=== PATIENT | female | born 1945 | race Caucasian/White ===

== ENCOUNTER → 2017-02-25 | Outpatient (CLI) | payer MEDICARE, OTHER ==
[~2017-02-25] MED LIST: ALEVE 220MG220 MG PO; FETZIMA20 PO; FETZIMA40 PO; FEXMID7.5 MG PO; IBU-4400 MG; PREDNISONE10 MG PO; PREMPRO 0.45 MG1 TAB PO; PREMPRO 0.625/21 TAB PO; TYLENOL EXTRA500 M1 PO
== END ==
LOC: MC.RAD 13:39
DX: Z12.31 Encounter for screening mammogram for malignant neoplasm of breast (principal)

== ENCOUNTER 2023-10-26 14:33 | Emergency (ER) | payer MEDICARE, OTHER ==
[~2023-10-26] VITALS: Ht 170.2 cm; Wt 70.5 kg
[2023-10-26 14:40] VITALS: BP 144/66; PULSE 95; TEMP 97.8
== END 2023-10-26 17:15 | disposition home or self-care (01) ==
LOC: COL.ER 14:33
DX: M51.36 Other intervertebral disc degeneration, lumbar region (principal); M54.16 Radiculopathy, lumbar region; M48.061 Spinal stenosis, lumbar region without neurogenic claudication; Z98.890 Other specified postprocedural states

== ENCOUNTER 2023-11-22 09:02 | Emergency (ER) | payer MEDICARE, OTHER ==
[~2023-11-22] VITALS: Ht 170.2 cm; Wt 71.8 kg
[~2023-11-22 09:02] MED LIST changes: +CELEBREX50 MG PO; +DUPIXENT P200 MG/1.1 SQ; +FOSAMAX5 MG PO; +NEURONTIN100 MG/CAP PO; +OSCAL 500 TAB500 MG PO; +VITAMIN D3400 I1 PO; +ZANAFLEX CAPSULE2 MG PO; +ZOLOFT 50MG50 MG PO
[2023-11-22 09:04] VITALS: TEMP 98.1
[2023-11-22] MEDS ORDERED: Ketorolac 15 MG/ML VIAL IV ONE (09:30)
[2023-11-22] MEDS ORDERED: PREDNISONE20 MG PO (09:51)
[2023-11-22 10:06] VITALS: BP 143/63; PULSE 76
[2023-11-22] MEDS ORDERED: Home HYDROcodone/Acetaminophen 5/325 MG #4 TABS/PACK PO ONE (10:45)
[2023-11-22] MEDS ORDERED: NARCAN4 MG NS (11:17)
[2023-11-23] MEDS ORDERED: FOSAMAX 35MG35 MG PO (13:14)
[2023-11-23] MEDS ORDERED: CALCIUM 600 PLU1 TAB PO (13:15)
[2023-11-23] MEDS ORDERED: CELEBREX 1100 MG/CAP PO (13:16)
[2023-11-23] MEDS ORDERED: DUPIXENT P300 MG/2 M SQ (13:17)
[2023-11-23] MEDS ORDERED: NEURONTIN300 MG/CAP PO (13:17)
[2023-11-23] MEDS ORDERED: ZANAFLEX CAPSULE4 MG PO (13:18)
[2023-11-23] MEDS ORDERED: D3-5050000 IU PO (13:19)
[2023-11-23] MEDS ORDERED: MASON NATURAL2000 IU PO (13:20)
[2023-11-23] MEDS ORDERED: PREDNISONE20 MG PO (13:20)
[2023-11-23] MEDS ORDERED: NORCO 325 MG-51 TAB PO (13:21)
== END 2023-11-22 11:20 | disposition home or self-care (01) ==
LOC: COL.ER 09:02
DX: G89.29 Other chronic pain (principal); M54.50 Low back pain, unspecified
CPT/HCPCS: J1885; J2360

== ENCOUNTER → 2023-12-18 | Outpatient (CLI) | payer MEDICARE, OTHER ==
[~2023-12-18] VITALS: Ht 170.2 cm; Wt 71.9 kg
[~2023-12-18] MED LIST changes: +CALCIUM 600 PLU1 TAB PO; +CELEBREX 1100 MG/CAP PO; +D3-5050000 IU PO; +DUPIXENT P300 MG/2 M SQ; +FOSAMAX 35MG35 MG PO; +MASON NATURAL2000 IU PO; +NARCAN4 MG NS; +NEURONTIN300 MG/CAP PO; +NORCO 325 MG-51 TAB PO; +PREDNISONE20 MG PO; +Triamcinolone 40 MG/ML 1 ML VIAL IJ SCH; +ZANAFLEX CAPSULE4 MG PO
[2023-12-18 12:39] VITALS: BP 132/78; PULSE 83; TEMP 98.2
[2023-12-18 13:35] VITALS: BP 156/76; PULSE 83
--- NOTE | 2023-12-18 14:00 | NUR ---
PATIENT COMPLETED HER RECOVERY PERIOD. PATIENT IS ABLE TO WALK WITHOUT ANY ISSUES. BANDAGES REMAIN CLEAN, DRY, AND INTACT. PATIENT DENIES HAVING ANY NEW PAIN, NUMBNESS, OR TINGLING. PATIENT HAS HER WRITTEN D/C INSTRUCTIONS AND IS ABLE TO TEACH BACK. ESCORTED PATIENT VIA WHEELCHAIR TO HER RIDE AT THE PATIENT ENTRANCE. PATIENT ABLE TO GET INTO THE FRONT PASSENGER SEAT WITHOUT ANY ISSUES OR ASSISTANCE. ALL NEEDS MET.
== END ==
LOC: COL.RAD 12:20
DX: M47.26 Other spondylosis with radiculopathy, lumbar region (principal); M51.16 Intervertebral disc disorders with radiculopathy, lumbar region
CPT/HCPCS: J0665; J3301

== ENCOUNTER 2023-12-22 13:44 | Emergency (ER) | payer MEDICARE ==
[~2023-12-22] VITALS: Ht 170.2 cm; Wt 71.4 kg
[~2023-12-22 13:44] MED LIST changes: -Triamcinolone 40 MG/ML 1 ML VIAL IJ SCH
[2023-12-22 13:47] VITALS: TEMP 98.8
[2023-12-22 14:53] LABS: BASO # 0.1 K/mm3 (0.0-0.2); BASO % 0.6 % (0.0-2.0); EOS # 0.2 K/mm3 (0.0-0.7); EOS % 1.7 % (0.0-4.0); GRAN # 7.5 K/mm3 (1.4-6.5); HEMATOCRIT 43.4 % (37.0-47.0); HEMOGLOBIN 13.6 g/dl (12.5-16.0); LYMPH # 2.1 K/mm3 (1.2-3.4); LYMPH % 19.4 % (20.0-51.0); MEAN CELL VOLUME 90 fl (80.0-100.0); MEAN CORPUSCULAR HEMOGLOBIN 28 pg (27-31); MEAN CORPUSCULAR HGB CONC 31 g/dl (33.0-37.0); MEAN PLATELET VOLUME 10.5 fl (7.4-10.4); MONO % 8.8 % (1.7-9.3); PLATELET COUNT 219 K/mm3 (130-400); RED BLOOD COUNT 4.81 M/mm3 (4.10-5.30); REDCELL DISTRIBUTION WIDTH-CV 13.5 % (11.5-14.5)
[2023-12-22] MEDS ORDERED: Ondansetron 4 MG/2 ML VIAL IV ONE (15:00)
[2023-12-22] MEDS ORDERED: Morphine 4 MG/ML VIAL IV ONE (15:00)
[2023-12-22 15:08] LABS: ERYTHROCYTE SEDIMENTATION RATE 34 mm/hr (0-30)
[2023-12-22 15:10] LABS: ALBUMIN 3.5 g/dL (3.4-4.8); BILIRUBIN,TOTAL 0.8 mg/dL (0.2-1.2); CALCIUM 9.3 mg/dL (8.4-10.2); CREATININE, serum 0.76 mg/dL (0.57-1.11); POTASSIUM 3.9 mEq/L (3.5-4.5); TOTAL PROTEIN 7.4 g/dl (6.2-8.1)
[2023-12-22 16:20] VITALS: BP 138/55; PULSE 92
== END 2023-12-22 16:23 | disposition short-term general hospital (02) ==
LOC: COL.ER 13:44
PROVIDERS: Family Medicine
DX: M54.16 Radiculopathy, lumbar region (principal); R32 Unspecified urinary incontinence
CPT/HCPCS: J2270; J2405